=== PATIENT | male | born 1945 | race Caucasian/White ===

== ENCOUNTER 2019-10-30 04:18 | Emergency (ER) | payer OTHER, BC ==
--- NOTE | 2019-10-30 04:25 | PDOC ---
History of Present Illness - General Stated Complaint: FALL History Source: Patient Exam Limitations: No Limitations - History of Present Illness Initial Comments: 10/30/19 06:53 73 yo M with no past medical history presents to the emergency department s/p syncopal event that occurred today at 3:45 am. Per the patient, he states he went to urinate when he felt a progressive feeling of lightheadedness and had a LOC event. The heard him fall and found him on the floor. He was out for approximately 30 seconds and awoke spontaneously. Currently, he has pain in his nose. Denies headaches. denies the following: fever, chills nausea, vomiting, SOB, chest pain, dysuria, hematuria, diarrhea, and leg pain/swelling. Allergies: PCN Past History - Past Medical History Allergies/Adverse Reactions: Allergies Allergy/AdvReac Type Severity Reaction Status Date / Time Penicillins Allergy Unknown Verified 10/30/19 04:32 Home Medications: Ambulatory Orders NK [No Known Home Medication] 10/30/19 Review of Systems - Review of Systems Able to Perform ROS?: Yes Is the patient limited Japanese proficient: No Constitutional: No: Chills, Fever, Weakness HEENTM: Yes: Nose Pain. No: Eye Pain, Ear Pain, Throat Pain, Mouth Pain Respiratory: No: Cough, Shortness of Breath, Hemoptysis Cardiac (ROS): No: Chest Pain, Lightheadedness, Palpitations, Syncope ABD/GI: No: Constipated, Diarrhea, Nausea, Rectal Bleeding, Vomiting, Tarry Stools : No: Dysuria, Flank Pain, Hematuria Musculoskeletal: Yes: Joint Pain (left knee). No: Back Pain, Neck Pain Integumentary: No: Bruising, Erythema, Rash Neurological: No: Headache, Tingling, Tremors, Unsteady Gait, Ataxia Psychiatric: No: Change in Appetite Endocrine: No: Unexplained Weight Loss Hematologic/Lymphatic: No: Anemia *Physical Exam - Physical Exam General Appearance: Yes: Nourished, Appropriately Dressed, Other (abrasion noted on the left frontal/parietal region of the skull. ). No: Apparent Distress, Intoxicated HEENT: positive: EOMI, ZAYNAB (previous cataract surgery bilaterally. 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 negative: Normal ENT Inspection (left fronto-parietal abrasion noted. 3 mm laceration noted at the entrance to the left nare on the upper lip. brusing noted on the nasal bridge. no tenderness to palpation on the orbits and maxillary sinuses. ), Pale Conjunctivae, Scleral Icterus (R), Scleral Icterus (L ), Muffled/Hoarse voice, Pharyngeal Erythema, Tonsillar Exudate, Tonsillar Erythema, Nasal Congestion, Rhinorrhea, Excessive drooling Neck: positive: Trachea midline, Supple. negative: Tender, Lymphadenopathy (R) , Lymphadenopathy (L), Tender lateral, Tender midline Respiratory/Chest: positive: Lungs Clear, Normal Breath Sounds. negative: Chest Tender, Respiratory Distress, Accessory Muscle Use, Crackles, Rales, Rhonchi, Stridor, Wheezing Cardiovascular: positive: Regular Rhythm, Regular Rate, S1, S2. negative: Systolic Murmur Gastrointestinal/Abdominal: positive: Normal Bowel Sounds, Flat, Soft. negative : Tender, Distended, Guarding Lymphatic: negative: Adenopathy Musculoskeletal: positive: Normal Inspection, Other (no tenderness to palpation in the midline and paraspinal process. no deficit in ROM). negative: CVA Tenderness, Vertebral Tenderness Extremity: positive: Normal Capillary Refill, Normal Inspection, Normal Range of Motion. negative: Tender, Swelling, Calf Tenderness Integumentary: positive: Normal Color, Dry, Warm Neurologic: positive: deputy treasurer II-XII NML intact, Fully Oriented, Alert, Normal Mood/ Affect, Normal Response, Motor Strength 5/5. negative: EOM Palsy, Facial Droop , Sensory Deficit ED Treatment Course - LABORATORY CBC & Chemistry Diagram: 10/30/19 05:15 10/30/19 05:15 Medical Decision Making - Medical Decision Making 73 yo M with no past medical history presents to the emergency department s/p syncopal event that occurred today at 3:45 am. Initial vitals: Initial Vital Signs Temp Pulse Resp BP Pulse Ox 97.3 F L 64 18 137/63 98 10/30/19 04:28 10/30/19 04:28 10/30/19 04:28 10/30/19 04:28 10/30/19 04:28 Work up: ddx: patient presented s/p syncopal event. based on story, appears the patient had a prodromal sequence of lightheadedness prior to the event. denies having chest pain, palpitations, or a hx of cardiac disease. Laboratory Tests 10/30/19 10/30/19 10/30/19 05:15 05:15 05:15 WBC 7.8 RBC 5.51 Hgb 17.5 H Hct 51.2 H MCV 92.9 MCH 31.7 MCHC 34.1 RDW 13.1 Plt Count 212 MPV 8.9 Absolute Neuts (auto) 5.0 Neutrophils % 63.7 Lymphocytes % 25.6 Monocytes % 5.4 Eosinophils % 5.0 H Basophils % 0.3 Nucleated RBC % 0 Sodium 142 Potassium 4.4 Chloride 107 Carbon Dioxide 26 Anion Gap 9 BUN 13.5 Creatinine 0.9 Est GFR (CKD-EPI)AfAm 98.55 Est GFR (CKD-EPI)NonAf 85.03 Random Glucose 108 H Calcium 9.2 Total Bilirubin 0.6 AST 24 ALT 37 Alkaline Phosphatase 65 Creatine Kinase 175 Creatine Kinase Index 3.3 CK-MB (CK-2) 5.8 H Troponin I < 0.02 Total Protein 7.5 Albumin 4.1 TSH 3.10 patient's EKG shows NSR with left axis deviation without TWI with RBBB. per the patient, he has known RBBB and left axis deviation CT head, cervical spine, and facial bones negative for acute process. known left chronic maxillary sinusitis known. Patient's CXR clear of acute processes. Patient was re-evaluated. feels significantly better and willing to go home. strict return precautions given. Wound abrasion was cleaned and bacitracin placed. Dispo: Discharge Discharge - Discharge Information Problems reviewed: Yes Clinical Impression/Diagnosis: Syncope, Vaso vagal episode Condition: Improved Disposition: HOME - Admission No - Follow up/Referral Referrals: [facility] [place] [facility] [place] [Provider Group] - Patient Discharge Instructions Patient Printed Discharge Instructions: How to Prevent Falls Additional Instructions: You were seen in the emergency department for the evaluation of your syncopal event. Your head, cervical spine, and facial CT was negative for acute pathology. Your labs are within normal limits. Please follow up with your primary medical doctor within 1 week after discharge or the one referred to you. Please return to the emergency department if you have worsening symptoms or new concerning symptoms such as confusion, intractable nausea and vomiting, unsteady gait, and focal weaknesses. Thank you. - Post Discharge Activity
[2019-10-30 04:46] VITALS: BMI 26.6
[2019-10-30] MEDS ORDERED: ACETAMINOPHEN 1000 MG/100 ML VIAL (NON FORMULARY) IVPB ONE (05:05)
[2019-10-30 05:39] LABS: BASO % 0.3 % (0-2.0); HEMATOCRIT 51.2 % (35.4-49); HEMOGLOBIN 17.5 GM/dL (11.7-16.9); LYMPH % 25.6 % (8-40); MCH 31.7 pg (25.7-33.7); MCHC 34.1 g/dl (32.0-35.9); MEAN CELL VOLUME 92.9 fl (80-96); MEAN PLT VOLUME 8.9 fl (7.5-11.1); MONO % 5.4 % (3.8-10.2); NEUT % 63.7 % (42.8-82.8); PLATELET COUNT 212 K/MM3 (134-434); RBC 5.51 M/mm3 (4.00-5.60); RDW 13.1 % (11.9-15.9); WHITE BLOOD COUNT 7.8 K/mm3 (4.0-10.0)
[2019-10-30 06:06] LABS: ALBUMIN 4.1 g/dl (3.4-5.0); BILIRUBIN,TOTAL 0.6 mg/dL (0.2-1); BLOOD UREA NITROGEN 13.5 mg/dL (7-18); CALCIUM 9.2 mg/dL (8.5-10.1); CREATININE 0.9 mg/dL (0.55-1.3); POTASSIUM 4.4 mmol/L (3.5-5.1); TOT PROT 7.5 g/dl (6.4-8.2)
[2019-10-30] MEDS ORDERED: ACETAMINOPHEN INJECTION 100 ML IVPB ONE (06:11)
--- NOTE | 2019-10-30 06:19 | PDOC ---
Attending Attestation - Resident Resident Name: Donta Berry - ED Attending Attestation I have performed the following: I have examined & evaluated the patient, The case was reviewed & discussed with the resident, I agree w/resident's findings & plan, Exceptions are as noted - HPI HPI: 73 years old with no past medical history not on anticoagulation presents to the emergency department after syncopal episode this evening. Patient states he got up in the middle night use bathroom while straining and urinating patient developed dizziness lightheadedness and passed out did hit his head found by his no seizure activity noted no tongue biting no incontinence was alert and oriented quickly after episode EMS was called and patient was brought into hospital Patient with several episodes of similar vagal syncope in the past had a thorough cardiac work-up within the last 1 to 2 years including echo and stress At this time denies any complaints no fever chills headache chest pain shortness of breath nausea vomiting diarrhea - Physicial Exam PE: 10/30/19 06:18 Vitals: Triage Vital signs reviewed bruise to General Appearance: No acute distress, well nourished well developed, Head: Top of head with abrasion Eyes: Pupils equal reactive round, extraocular movement intact Neck: Supple; no Nucal rigidity Chest Wall: Nontender Cardiac: Regular rate and rhythym, no murmurs, no rubs, no gallops, Lungs: Clear to auscultation bilateral, good air movement bilaterally, Abdomen: Soft, non distended, normal bowel sounds, non tender to palpation Extremities: Full range of motion to all extremities, no cyanosis, clubbing, or edema Skin: Warm and dry, no rashes or lesions, no rash, no petechiae Neuro: AOX3; cranial Nerves 2-12 grossly intact, strength intact to all extremities, sensation intact to all extremities, gait normal Psych: Normal mood, normal affect 10/30/19 06:19 - Medical Decision Making 10/30/19 06:20 73 years old with no past medical history presents to the emergency department with syncopal event likely vagal in nature during micturition this evening. Patient has had similar episodes in the past has had a thorough cardiology work- up within the last year Patient did sustain head trauma however has a nonfocal neurologic examination at this time is on any anticoagulation Labs head CT EKG ordered Okay no acute findings on imaging laboratory analysis within normal limits history and examination is most consistent with vasovagal syncope I offered the patient admission for further work-up patient states this has happened to him before and very similar context he has had a work-up for this does not want to stay in the hospital for further evaluation he will follow-up with his doctor Patient return to the ED for any severe worsening symptoms or for any concerns Findings, the need for follow-up and strict return instructions discussed with patient. Heart Score/ECG Review - ECG Impressions Comment:: 10/30/19 06:22 EKG performed at [address] elevations or T wave inversions right bundle branch block left axis deviation no evidence of WPW, Brugada, prolonged QT
[2019-10-30] MEDS ORDERED: BACITRACIN 0.9 GM PACKET ONE (06:53)
[2019-10-30] MEDS ORDERED: BACITRACIN 15 GM TUBE TOPICAL OINTMENT TP ONE (06:53)
[2019-10-30 07:13] VITALS: BP 140/81; PULSE 71; TEMP 97.6
--- NOTE | 2019-10-30 15:34 | EKG ---
Test Reason : Blood Pressure : / mmHG Vent. Rate : 063 BPM Atrial Rate : 063 BPM P-R Int : 182 ms QRS Dur : 150 ms QT Int : 424 ms P-R-T Axes : 046 -41 024 degrees QTc Int : 433 ms NORMAL SINUS RHYTHM LEFT AXIS DEVIATION RIGHT BUNDLE BRANCH BLOCK ABNORMAL ECG NO PREVIOUS ECGS AVAILABLE Confirmed by TAYLOR EM, ISAIAH ([id number]) on 10/30/2019 3:33:42 PM Referred By: Confirmed By:ISAIAH VAZQUEZ MD
== END 2019-10-30 07:23 | disposition home or self-care (01) ==
LOC: JER 04:18
PROC: 3E033NZ Introduction of Analgesics, Hypnotics, Sedatives into Peripheral Vein, Percutaneous Approach (ICD-10-PCS; principal; 2019-10-30)
DX: R55 Syncope and collapse (principal); S00.511A Abrasion of lip, initial encounter; W18.39XA Other fall on same level, initial encounter; Y93.89 Activity, other specified; Y92.031 Bathroom in apartment as the place of occurrence of the external cause; Y99.8 Other external cause status; Z88.0 Allergy status to penicillin
CPT/HCPCS: 36415; 70450-TC; 70486-TC; 71046-TC-FY; 72125-TC; 80053; 82550; 82553; 84443; 84484; 85025; 93005; 93010; 96374; 99284-25; J0131